=== PATIENT | female | born 1965 | race Caucasian/White ===

== ENCOUNTER 2017-03-18 12:45 | Emergency (ER) | payer BC ==
[~2017-03-18] VITALS: Ht 167.6 cm; Wt 79.0 kg
[~2017-03-18 12:45] MED LIST: ALLEGRA ALLERGY60 MG PO; BENADRYL25 MG PO; BENTYL10 MG PO; CEPHALEXIN500 MG PO; CLARITIN10 M2 OR; COMPAZINE10 MG PO; DILAUDID 2MG2 MG/TA1 PO; EFFEXOR XR75 MG PO; ELAVIL25 M1 PO; LORTAB 7.5-3251 TAB PO; NORCO1 TA1 PO; PHENERGAN25 MG/TAB PO; PROVERA5 MG PO; PSEUDOEPHEDR30 MG PO; TORADOL PO; XANAX0.25 MG PO
[2017-03-18] MEDS ORDERED: PHENERGAN25 MG/TAB PO ×2 (14:37→17:32)
[2017-03-18] MEDS ORDERED: TRAMADOL HCL50 MG PO (14:37)
[2017-03-18] MEDS ORDERED: BENTYL10 MG PO (14:38)
[2017-03-18 14:50] LABS: HEMATOCRIT 38.8 % (37.0-47.0); HEMOGLOBIN 13.1 g/dl (12.0-16.0); IMMATURE GRANULOCYTES 0.3 % (0.0-1.0); MEAN CELL VOLUME 91.3 fL CALC (80.0-100.0); MEAN CORPUSCULAR HGB 30.8 pG CALC (26.0-32.0); MEAN CORPUSCULAR HGB CONC 33.8 g/L CALC (32.0-36.0); NEUT# 2.63 thou/uL (2.00-7.15); RED BLOOD COUNT 4.25 mill/uL (4.20-5.60); RED CELL DISTRI WIDTH 11.5 % (11.5-15.5)
[2017-03-18 15:08] LABS: ALBUMIN 4.4 g/dL (3.2-5.0); ALKALINE PHOSPHATASE 73 u/l (38-126); AMYLASE 78 u/l (30-110); ANION GAP 19 (6-22 (CALC)); BILIRUBIN, TOTAL 0.2 mg/dL (0.0-1.4); BUN 11 mg/dL (7-17); BUN/CREATININE RATIO 15 (12-20 (CALC)); CALCIUM 9.7 mg/dL (8.4-10.2); CARBON DIOXIDE 21 mmol/l (22-30); CHLORIDE 108 mmol/l (95-108); CREATININE 0.7 mg/dL (0.5-1.0); GFR > 60 ML/MIN (>=60 (CALC)); GFR FOR AFR.AMER. > 60 ML/MIN (>=60 (CALC)); GLUCOSE 90 mg/dL (65-105); LIPASE 306 u/l (23-300); POTASSIUM 3.4 mmol/l (3.5-5.1); SGOT/AST 32 u/l (14-36); SGPT/ALT 48 u/l (9-52); SODIUM 146 mmol/l (137-146); TOTAL PROTEIN 6.8 g/dL (6.3-8.2)
[2017-03-18 15:20] LABS: MYOGLOBIN 29 ng/mL (0 - 62)
[2017-03-18 15:21] LABS: INFLUENZA A POSITIVE (NONE DETECT); INFLUENZA B NONE DETECTED (NONE DETECT)
[2017-03-18 17:19] LABS: URINE BILIRUBIN - DIPSTICK NEGATIVE (NEGATIVE); URINE BLOOD DIPSTICK SMALL (NEGATIVE); URINE COLOR YELLOW; URINE GLUCOSE - DIPSTICK NEGATIVE (NEGATIVE); URINE KETONE 40 mg/dL (NEGATIVE); URINE NITRITE - DIPSTICK NEGATIVE (Negative); URINE PROTEIN - DIPSTICK NEGATIVE (NEG-TRACE); URINE UROBILINOGEN - DIPSTICK 0.2 E.U./dL (0.2)
[2017-03-18 17:22] LABS: BARBITURATES NEGATIVE (NEGATIVE); COCAINE NEGATIVE (NEGATIVE); METHADONE NEGATIVE (NEGATIVE); OXCYCODONE NEGATIVE (NEGATIVE); TETRAHYDROCANNABIONOL NEGATIVE (NEGATIVE); TRICYLIC ANTIDEPRESSANTS NEGATIVE (NEGATIVE)
[2017-03-18 17:24] LABS: URINE CLARITY SL CLOUDY; URINE LEUK ESTERASE SMALL (NEGATIVE)
[2017-03-18 17:26] LABS: URINE SQUAMOUS EPITHELIAL CELL MANY EPI/hpf (0-FEW)
[2017-03-18] MEDS ORDERED: TAM75CAP PO (17:32)
[2017-03-18] MEDS ORDERED: CEPHALEXIN500 MG PO (17:32)
[2017-03-18 17:36] VITALS: BP 102/62
== END 2017-03-18 17:41 | disposition home or self-care (01) | DRG 690 ==
LOC: ED 12:45
PROVIDERS: Emergency Medicine
DX: N39.0 Urinary tract infection, site not specified (principal); B95.1 Streptococcus, group B, as the cause of diseases classified elsewhere; J10.1 Influenza due to other identified influenza virus with other respiratory manifestations; R10.31 Right lower quadrant pain; R05 Cough; R11.0 Nausea; R19.7 Diarrhea, unspecified
CPT/HCPCS: Q9967

== ENCOUNTER 2019-07-13 19:07 | Emergency (ER) | payer BC ==
[~2019-07-13 19:07] MED LIST changes: +TAM75CAP PO; +TRAMADOL HCL50 MG PO
[2019-07-13 19:59] LABS: HEMATOCRIT 36.7 % (37.0-47.0); HEMOGLOBIN 12.2 g/dl (12.0-16.0); IMMATURE GRANULOCYTES 0.7 % (0.0-5.0); MEAN CELL VOLUME 93.4 fL CALC (80.0-100.0); MEAN CORPUSCULAR HGB CONC 33.2 g/dL CAL (32.0-36.0); NEUT# 4.74 thou/uL (2.00-7.15); RED BLOOD COUNT 3.93 mill/uL (4.20-5.60); RED CELL DISTRI WIDTH 11.6 % (11.5-15.5)
[2019-07-13 20:00] LABS: URINE BILIRUBIN - DIPSTICK NEGATIVE (NEGATIVE); URINE BLOOD DIPSTICK NEGATIVE (NEGATIVE); URINE COLOR YELLOW; URINE GLUCOSE - DIPSTICK NEGATIVE (NEGATIVE); URINE KETONE NEGATIVE (NEGATIVE); URINE LEUK ESTERASE TRACE (NEGATIVE); URINE NITRITE - DIPSTICK NEGATIVE (Negative); URINE PH 5.5 (4.5-8.0); URINE PROTEIN - DIPSTICK NEGATIVE (NEG-TRACE); URINE SPECIFIC GRAVITY 1.025; URINE UROBILINOGEN - DIPSTICK 0.2 E.U./dL (0.2)
[2019-07-13 20:17] LABS: ALBUMIN 4.4 g/dL (3.2-5.0); ALKALINE PHOSPHATASE 80 u/l (38-126); AMYLASE 126 u/l (30-110); ANION GAP 13 (6-22 (CALC)); BILIRUBIN, TOTAL 0.2 mg/dL (0.0-1.4); BUN 13 mg/dL (7-17); BUN/CREATININE RATIO 18 (12-20 (CALC)); CARBON DIOXIDE 23 mmol/l (22-30); CHLORIDE 108 mmol/l (95-108); CREATININE 0.7 mg/dL (0.5-1.0); GFR > 60 ML/MIN (>=60 (CALC)); GFR FOR AFR.AMER. > 60 ML/MIN (>=60 (CALC)); LIPASE 244 u/l (23-300); POTASSIUM 3.4 mmol/l (3.5-5.1); SGOT/AST 26 u/l (14-36); SODIUM 140 mmol/l (137-146); TOTAL PROTEIN 7.8 g/dL (6.3-8.2)
[2019-07-13 20:28] LABS: MYOGLOBIN 27 ng/mL (0 - 62)
[2019-07-13] MEDS ORDERED: ULTRAM50 M1 PO (21:28)
[2019-07-13] MEDS ORDERED: REGLAN10 MG PO ×2 (21:28)
[2019-07-13 21:33] VITALS: BP 118/56
== END 2019-07-13 21:46 | disposition home or self-care (01) | DRG 392 ==
LOC: ED 19:07
PROVIDERS: Emergency Medicine
DX: K31.84 Gastroparesis (principal)

== ENCOUNTER 2019-10-03 23:55 | Emergency (ER) | payer BC ==
[~2019-10-03] VITALS: Ht 170.2 cm; Wt 68.1 kg
[~2019-10-03 23:55] MED LIST changes: +REGLAN10 MG PO; +ULTRAM50 M1 PO
[2019-10-04] MEDS ORDERED: PYRIDIUM200 MG PO (00:23)
[2019-10-04] MEDS ORDERED: NITROFURANTN100 MG PO (00:23)
[2019-10-04 00:37] LABS: URINE BILIRUBIN - DIPSTICK NEGATIVE (NEGATIVE); URINE BLOOD DIPSTICK NEGATIVE (NEGATIVE); URINE COLOR YELLOW; URINE GLUCOSE - DIPSTICK NEGATIVE (NEGATIVE); URINE KETONE NEGATIVE (NEGATIVE); URINE LEUK ESTERASE NEGATIVE (NEGATIVE); URINE NITRITE - DIPSTICK NEGATIVE (Negative); URINE PROTEIN - DIPSTICK NEGATIVE (NEG-TRACE); URINE UROBILINOGEN - DIPSTICK 0.2 E.U./dL (0.2)
[2019-10-04 00:49] LABS: HEMOGLOBIN 11.1 g/dl (12.0-16.0); IMMATURE GRANULOCYTES 0.3 % (0.0-5.0); MEAN CORPUSCULAR HGB 29.1 pG CALC (26.0-32.0); MEAN CORPUSCULAR HGB CONC 32.6 g/dL CAL (32.0-36.0); NEUT# 4.07 thou/uL (2.00-7.15); RED BLOOD COUNT 3.82 mill/uL (4.20-5.60); RED CELL DISTRI WIDTH 11.7 % (11.5-15.5)
[2019-10-04 01:07] LABS: ALBUMIN 4.1 g/dL (3.2-5.0); ALKALINE PHOSPHATASE 74 u/l (38-126); ANION GAP 12 (6-22 (CALC)); BILIRUBIN, TOTAL 0.2 mg/dL (0.0-1.4); BUN 11 mg/dL (7-17); BUN/CREATININE RATIO 17 (12-20 (CALC)); CARBON DIOXIDE 22 mmol/l (22-30); CHLORIDE 110 mmol/l (95-108); CREATININE 0.6 mg/dL (0.5-1.0); GFR > 60 ML/MIN (>=60 (CALC)); GFR FOR AFR.AMER. > 60 ML/MIN (>=60 (CALC)); POTASSIUM 3.5 mmol/l (3.5-5.1); SGOT/AST 21 u/l (14-36); SODIUM 140 mmol/l (137-146); TOTAL PROTEIN 6.4 g/dL (6.3-8.2)
[2019-10-04 01:36] VITALS: BP 145/80
[2019-10-04] MEDS ORDERED: TORADOL PO ×2 (01:44)
== END 2019-10-04 02:05 | disposition home or self-care (01) | DRG 696 ==
LOC: ED 23:55
PROVIDERS: Family Medicine
DX: R30.0 Dysuria (principal); S39.012A Strain of muscle, fascia and tendon of lower back, initial encounter; X58.XXXA Exposure to other specified factors, initial encounter

== ENCOUNTER 2019-10-31 22:11 | Emergency (ER) | payer BC ==
[~2019-10-31] VITALS: Ht 170.2 cm; Wt 98.0 kg
[~2019-10-31 22:11] MED LIST changes: +NITROFURANTN100 MG PO; +PYRIDIUM200 MG PO
[2019-10-31] MEDS ORDERED: ZYRTEC10 M3 PO (22:35)
[2019-10-31] MEDS ORDERED: PEPCID40 MG PO (22:35)
[2019-10-31 23:16] LABS: URINE BILIRUBIN - DIPSTICK NEGATIVE (NEGATIVE); URINE BLOOD DIPSTICK MODERATE (NEGATIVE); URINE COLOR YELLOW; URINE GLUCOSE - DIPSTICK NEGATIVE (NEGATIVE); URINE KETONE NEGATIVE (NEGATIVE); URINE LEUK ESTERASE NEGATIVE (NEGATIVE); URINE NITRITE - DIPSTICK NEGATIVE (Negative); URINE PROTEIN - DIPSTICK 30 mg/dL (NEG-TRACE); URINE SPECIFIC GRAVITY >=1.030; URINE UROBILINOGEN - DIPSTICK 0.2 E.U./dL (0.2)
[2019-10-31 23:27] LABS: URINE BACTERIA FEW hpf; URINE MUCUS FEW hpf (NONE-FEW); URINE SQUAMOUS EPITHELIAL CELL FEW EPI/hpf (0-FEW)
[2019-10-31 23:33] LABS: IMMATURE GRANULOCYTES 0.1 % (0.0-5.0); MEAN CELL VOLUME 91.6 fL CALC (80.0-100.0); MEAN CORPUSCULAR HGB 28.7 pG CALC (26.0-32.0); MEAN CORPUSCULAR HGB CONC 31.4 g/dL CAL (32.0-36.0); NEUT# 7.03 thou/uL (2.00-7.15); RED BLOOD COUNT 4.87 mill/uL (4.20-5.60)
[2019-10-31 23:34] LABS: HEMATOCRIT 44.6 % (37.0-47.0)
[2019-10-31 23:50] LABS: ALKALINE PHOSPHATASE 83 u/l (38-126); AMYLASE 84 u/l (30-110); BUN 12 mg/dL (7-17); BUN/CREATININE RATIO 16 (12-20 (CALC)); CARBON DIOXIDE 20 mmol/l (22-30); CHLORIDE 109 mmol/l (95-108); CREATININE 0.8 mg/dL (0.5-1.0); GFR > 60 ML/MIN (>=60 (CALC)); GFR FOR AFR.AMER. > 60 ML/MIN (>=60 (CALC)); LIPASE 173 u/l (23-300); SGOT/AST 23 u/l (14-36); SODIUM 142 mmol/l (137-146); TOTAL PROTEIN 7.6 g/dL (6.3-8.2)
[2019-10-31 23:55] LABS: ANION GAP 18 (6-22 (CALC)); BILIRUBIN, TOTAL 0.3 mg/dL (0.0-1.4); POTASSIUM 4.5 mmol/l (3.5-5.1)
[2019-11-01 00:50] VITALS: BP 119/59
[2019-11-01] MEDS ORDERED: LOMOTIL2.5 MG PO (00:50)
[2019-11-01] MEDS ORDERED: PHENERGAN25 MG/TAB PO (00:50)
== END 2019-11-01 00:50 | disposition home or self-care (01) | DRG 392 ==
LOC: ED 22:11
PROVIDERS: Family Medicine
DX: K52.9 Noninfective gastroenteritis and colitis, unspecified (principal); K58.9 Irritable bowel syndrome, unspecified